=== PATIENT | female | born 1975 ===

== ENCOUNTER 2017-09-22 20:23 | Emergency (ER) | payer OTHER ==
[2017-09-22 20:32] VITALS: RESP 16; TEMP 98.4; O2SAT 99
--- NOTE | 2017-09-22 21:15 | ED PDOC ---
HPI: Chest Pain Chief Complaint (Provider): Chest pain History Per: Patient History/Exam Limitations: no limitations Current Symptoms Are (Timing): Gone Now Severity: Moderate Pain Scale Rating Of: 6 Quality: Sharp Associated Symptoms: Other (headache) Modifying Factors: None Exacerbating Factors: Deep Breathing Alleviating Factors: None <Mandy Majano - Last Filed: 09/22/17 23:00> <Patricia Valadez - Last Filed: 09/24/17 14:16> Time Seen by Provider: 09/22/17 20:27 Chief Complaint (Nursing): Chest Pain Additional Complaint(s): 42 yo ,f, PMhx/o HTN, Hydronephrosis, Asthma presents to ED c/o chest pain started 12 days ago, left side, sharp, 6/10 intensity, intermittent, 2 times/day , worse during the morning, lasting 6 hours today, but subisided on arrival to Ed, aggravated with deep inspiration, not reproducible, associated with right side frontal headache for the last 3 days. Patient reports uncontrolled HTN for the last 2 days, taking Labetalol 100 mg BID, last dose today 5 pm. BP in ED: 145/98. Patient s/p C section on 07/27/17 with chronic HTN during w/o preclampsia. and bottle feeding. Denies SOB, cough, URI symptoms, n,v, epigastric abd pain, pyrosis, calf pain, recent travel, hx/o DVT. PMD: Berry Hernandez (Mandy Majano) Supervising Attending Note - Supervising Attending Note The Documented history was done by the: Physician Instructional Paraprofessional, Attending Physician The documented physical exam was done by the: Physician Instructional Paraprofessional, Attending Physician - Attestation: I have personally seen and examined this patient.: Yes I have fully participated in the care of the patient.: Yes I have reviewed all pertinent clinical information: Yes <Patricia Valadez - Last Filed: 09/24/17 14:16> Past Medical History Reviewed: Historical Data, Nursing Documentation, Vital Signs - Medical History PMH: Asthma, HTN, Chronic Kidney Disease - Family History Family History: States: No Known Family Hx - Immunization History Hx Tetanus Toxoid Vaccination: No Hx Influenza Vaccination: No <Mandy Majano - Last Filed: 09/22/17 23:00> <ValadezPatricia - Last Filed: 09/24/17 14:16> Vital Signs: Last Vital Signs Temp 98.4 F 09/22/17 20:29 Pulse 64 09/22/17 23:00 Resp 16 09/22/17 23:00 BP 155/92 H 09/22/17 23:00 Pulse Ox 99 09/22/17 23:00 - Home Medications Home Medications: Ambulatory Orders Medication Instructions Recorded Acetaminophen [Tylenol] 650 mg PO Q4 #30 tab 02/12/15 Ibuprofen [Motrin] 600 mg PO Q6 #25 tab 02/12/15 - Allergies Allergies/Adverse Reactions: Allergies Allergy/AdvReac Type Severity Reaction Status Date / Time No Known Allergies Allergy Verified 02/12/15 09:55 SUZIE Risk Score for UA/NSTEMI - SUZIE Risk Score Age > 64: NO 3 or more CAD Risk Factors: NO Known CAD (Stenosis greater than 50%): NO Aspirin use in past 7 days: NO Severe Angina: NO EKG ST changes greater than 0.5mm: NO Positive Cardiac Marker: NO SUZIE Score: 0 Risk %: 5% <Mandy Majano - Last Filed: 09/22/17 23:00> Curb-65 Severity Score - CURB-65 Severity Score Confusion: No Bun >19mg/dl (>7mmol/L): No Respiratory Rate greater than/equal to 30: No Systolic BP <90 or Diastolic BP less than/equal 60mmHg: No Age >64: No Curb-65 Score: 0 Percentage 30-day mortality: 0.6% <Mandy Majano - Last Filed: 09/22/17 23:00> Wells Criteria for PE - Wells Criteria for Pulmonary Embolism Clinical Signs and Symptoms of DVT: No P.E is #1 Diagnosis, or Equally Likely: No Heart Rate >100: No Immobilization at least 3 days;Surgery previous 4 weeks: No Previous, objectively diagnosed PE or DVT: No Malignancy w/treatment within 6 months, or palliative: No Total Score: 0 <Mandy Majano - Last Filed: 09/22/17 23:00> Review of Systems ROS Statement: Except As Marked, All Systems Reviewed And Found Negative Cardiovascular: Positive for: Chest Pain Neurological: Positive for: Headache <Mandy Majano - Last Filed: 09/22/17 23:00> Physical Exam - Physical Exam Appears: Positive for: Well, No Acute Distress Head Exam: Positive for: ATRAUMATIC, NORMAL INSPECTION, NORMOCEPHALIC Skin: Positive for: Normal Color Eye Exam: Positive for: Normal appearance. Negative for: Nystagmus ENT: Positive for: Normal ENT Inspection Neck: Positive for: Normal, Supple. Negative for: Limited ROM Cardiovascular/Chest: Positive for: Regular Rate, Rhythm. Negative for: Murmur Respiratory: Positive for: Normal Breath Sounds. Negative for: Crackles, Rales , Rhonchi, Wheezing Pulses-Radial (L): 2+ Pulses-Radial (R): 2+ Gastrointestinal/Abdominal: Positive for: Normal Exam, Soft, Other. Negative for: Tenderness, Guarding, Rebound Back: Positive for: Normal Inspection. Negative for: L CVA Tenderness, R CVA Tenderness Extremity: Positive for: Normal ROM. Negative for: Tenderness, Pedal Edema, Calf Tenderness, Swelling Neurologic/Psych: Positive for: Alert, Oriented <Mandy Majano - Last Filed: 09/22/17 23:00> - Laboratory Results Result Diagrams: 09/22/17 21:35 09/22/17 21:35 - ECG O2 Sat by Pulse Oximetry: 99 <Mandy Majano - Last Filed: 09/22/17 23:00> - Laboratory Results Result Diagrams: 09/22/17 21:35 09/22/17 21:35 <Patricia Valadez - Last Filed: 09/24/17 14:16> Medical Decision Making <Mandy Majano - Last Filed: 09/22/17 23:00> <Patricia Valadez - Last Filed: 09/24/17 14:16> Medical Decision Makin:00 Initial impression Patient with atypical chest pain, low risk for PE, well score 0, heart score 0 Atypical Chest pain Differential ACS, pericarditis, PE, costochondritis, PNA Plan CBC, CMP, troponin, urine test,urine dip EKG: NSR. no acute ischemic change. NL T wave, no St changes. HR 68 CXR Toradol 15 mg IV, Pepcid -reevaluate 22: 35 Patient reports headache improved, only 2-3/10,no chest pain since arrived ED CBC, CMP, troponin normal. CXR: normal as per me. BP on discharge: 155/92 Instructed to see PMD for f/u 2-3 days Instructed to increase Labetalol 100 mg TID (Mandy Majano) Disposition - Patient ED Disposition Is Patient to be Admitted: No - Disposition Disposition: Routine/Home Disposition Time: 22:45 <Mandy Majano - Last Filed: 09/22/17 23:00> <Patricia Valadez - Last Filed: 09/24/17 14:16> - Clinical Impression Clinical Impression: Atypical chest pain - Disposition Condition: FAIR Additional Instructions: Follow up with your PMD Dr Berry hernandez in 2-3 days Increase labetalol 100 mg TID -Tylenol 500 mg PO Q 6h PRN headache Instructions: Chest Pain That Is Not Caused by the Heart (DC) Forms: [facility] [facility] (Swedish)
[2017-09-22 21:55] LABS: BASO % 0.7 % (0.0-2.0); EOS # 0.2 K/uL (0.0-0.7); EOS % 3.5 % (0.0-4.0); HEMOGLOBIN 12.8 g/dL (12.0-16.0); LYMPH % 37.3 % (20.0-40.0); MEAN CELL VOLUME 88.4 fl (81.0-99.0); MEAN CORPUSCULAR HGB CONC 32.8 g/dL (33.0-37.0); MEAN PLATELET VOLUME 7.2 fl (7.2-11.7); MONO # 0.5 K/uL (0.0-0.8); MONO % 9.7 % (0.0-10.0); NEUT # 2.7 K/uL (1.8-7.0); NEUT % 48.8 % (50.0-75.0); RBC 4.41 Mil/uL (3.80-5.20); RED CELL DISTRIBUTION WIDTH 13.5 % (11.5-14.5); WHITE BLOOD COUNT 5.5 K/uL (4.8-10.8)
[2017-09-22 22:07] LABS: ALB/GLOB RATIO 1.3 (1.0-2.1); ALBUMIN 4.3 g/dL (3.5-5.0); ALT/SGPT 33 U/L (9-52); AST/SGOT 32 U/L (14-36); BLOOD UREA NITROGEN 14 mg/dl (7-17); CALCIUM 9.3 mg/dL (8.4-10.2); GFR AFRICAN-AMERICAN > 60; GFR NON-AFRICAN AMERICAN > 60
[2017-09-22 23:09] VITALS: BP 155/92; PULSE 64
--- NOTE | 2017-09-23 08:16 | RAD ---
Date of service: 09/22/2017 HISTORY: chest pain COMPARISON: No prior. TECHNIQUE: Chest PA and lateral FINDINGS: LUNGS: No active pulmonary disease. PLEURA: No significant pleural effusion identified. No pneumothorax apparent. CARDIOVASCULAR: Normal. OSSEOUS STRUCTURES: No significant abnormalities. VISUALIZED UPPER ABDOMEN: Normal. OTHER FINDINGS: None. IMPRESSION: No active disease.
--- NOTE | 2017-09-23 08:40 | CARD ---
APPROVED REPORT Date of service: 09/22/2017 <Conclusion> Normal sinus rhythm Normal ECG
== END 2017-09-22 23:08 | disposition home or self-care (01) ==
LOC: H.ER 20:23
DX: R07.89 Other chest pain (principal); I12.9 Hypertensive chronic kidney disease with stage 1 through stage 4 chronic kidney disease, or unspecified chronic kidney disease
CPT/HCPCS: 71046; 80053; 81025; 84484; 85025; 93005; 96374; 99284; J1885

== ENCOUNTER 2017-09-28 22:01 | Emergency (ER) | payer OTHER ==
--- NOTE | 2017-09-29 00:38 | ED PDOC ---
HPI: Hypertension/Hypotension Time Seen by Provider: 09/28/17 23:11 Chief Complaint (Nursing): Headache Chief Complaint (Provider): Hypertension History Per: Patient History/Exam Limitations: no limitations Onset/Duration Of Symptoms: Hrs (today) Additional Complaint(s): Jodi Queen is a 42 year old female, with a past medical history of essential HTN, who presents to the emergency department for evaluation of hypertension onset today. Patient is x2 months and was taking Labetalol BID a few days ago but developed chest pain. She was evaluated in the ER for deranged blood pressure and was advised to increase the frequency from BID to TID. She reports increasing the frequency of dosage as recommended, however today her blood pressure was elevated, 180/110, just prior to taking her 3rd dose this evening. Patient does report some headache and funny sensation in her ears. She denies any nausea, vomit, associated chest pain, shortness of breath or swelling to legs. Patient is currently . No further medical complaints. PMD: Florencio Hernandez Past Medical History Reviewed: Historical Data, Nursing Documentation, Vital Signs Vital Signs: Last Vital Signs Temp 97.8 F 09/28/17 22:43 Pulse 65 09/28/17 22:43 Resp 19 09/28/17 22:43 BP 138/88 09/28/17 23:55 Pulse Ox 99 09/28/17 22:43 - Medical History PMH: Asthma, HTN, Chronic Kidney Disease - Surgical History Surgical History: (x3) Other surgeries: laparoscopy - Family History Family History: States: Unknown Family Hx - Social History Current smoker - smoking cessation education provided: No Alcohol: None Drugs: Denies - Immunization History Hx Tetanus Toxoid Vaccination: No Hx Influenza Vaccination: No - Home Medications Home Medications: Ambulatory Orders Medication Instructions Recorded Acetaminophen [Tylenol] 650 mg PO Q4 #30 tab 02/12/15 Ibuprofen [Motrin] 600 mg PO Q6 #25 tab 02/12/15 - Allergies Allergies/Adverse Reactions: Allergies Allergy/AdvReac Type Severity Reaction Status Date / Time No Known Allergies Allergy Verified 02/12/15 09:55 Review of Systems ROS Statement: Except As Marked, All Systems Reviewed And Found Negative ENT: Positive for: Other (funny sensation to ears) Cardiovascular: Negative for: Chest Pain, Edema (to legs) Respiratory: Negative for: Shortness of Breath Gastrointestinal: Negative for: Nausea, Vomiting Neurological: Positive for: Headache Physical Exam - Reviewed Nursing Documentation Reviewed: Yes Vital Signs Reviewed: Yes - Physical Exam Appears: Positive for: No Acute Distress Head Exam: Positive for: ATRAUMATIC, NORMAL INSPECTION, NORMOCEPHALIC Skin: Positive for: Normal Color, Warm, Dry Eye Exam: Positive for: Normal appearance, EOMI, PERRL Neck: Positive for: Painless ROM Cardiovascular/Chest: Positive for: Regular Rate, Rhythm. Negative for: Murmur Respiratory: Positive for: Normal Breath Sounds. Negative for: Respiratory Distress Gastrointestinal/Abdominal: Positive for: Normal Exam, Soft. Negative for: Tenderness Back: Positive for: Normal Inspection Extremity: Positive for: Normal ROM (upper and lower extremities). Negative for : Deformity, Swelling Neurologic/Psych: Positive for: Alert, Oriented. Negative for: Motor/Sensory Deficits - ECG O2 Sat by Pulse Oximetry: 99 (RA) Pulse Ox Interpretation: Normal Medical Decision Making Medical Decision Making: Time: 23:11 Initial Impression: 42 y/o [place] female with accelerated HTN in setting of state Initial Plan: --Apresoline 25 mg PO --Reevaluation 01:07 -Patient's blood pressure has spontaneously improved w/o administration of additional medications. Patient advised to maintain a log of her blood pressure and to follow up with primary physician who monitors her HTN in x2 days. Diagnosis HTN. ----- Scribe Attestation: Documented by Janes Haley, acting as a scribe for Red Gastelum MD. Provider Scribe Attestation: All medical record entries made by the Scribe were at my direction and personally dictated by me. I have reviewed the chart and agree that the record accurately reflects my personal performance of the history, physical exam, medical decision making, and the department course for this patient. I have also personally directed, reviewed, and agree with the discharge instructions and disposition. Disposition - Clinical Impression Clinical Impression: Hypertension - Disposition Disposition: Routine/Home Disposition Time: 01:07 Condition: STABLE Instructions: High Blood Pressure in Adults Forms: [facility] (German)
[2017-09-29 01:43] VITALS: BP 132/82; PULSE 72; RESP 18; TEMP 98.2; O2SAT 100
== END 2017-09-29 01:35 | disposition home or self-care (01) ==
LOC: H.ER 22:01
DX: I10 Essential (primary) hypertension (principal); I12.9 Hypertensive chronic kidney disease with stage 1 through stage 4 chronic kidney disease, or unspecified chronic kidney disease